=== PATIENT | female | born 1980 | race Caucasian/White ===

== ENCOUNTER 2021-11-10 13:52 | Emergency (ER) | payer OTHER, SELFPAY ==
--- NOTE | 2021-11-10 14:02 | ED.EXTPRO ---
HPI - Extremity Problem General Chief complaint: Extremity Injury, Lower Stated complaint: ella leg/foot/ankle painful and swelling Time Seen by Provider: 11/10/21 14:02 Source: patient and RN notes reviewed Mode of arrival: ambulatory Limitations: no limitations History of Present Illness HPI Narrative: 41-year-old female presents to the [facility] with complaints of lower leg swelling for the last 5 days. Patient states she has had intermittent swelling for the last month, has not seen her primary care provider. Patient reports numbness and tingling in her extremities. Positive pedal pulses noted. +2-3 edema pitting noted. No redness noted from mid calf to foot toe. Old scar noted to the right medial aspect of ankle patient reports that she had an abscess there. Reports this morning that she had some chest pain and shortness of breath, none currently. Patient states that she has been trying to keep her feet up but the swelling keeps getting worse. Reports she has a history of congestive heart failure, currently does not take any medications MD Complaint: extremity swelling (bilateral) Related Data Home Medications Medication Instructions Recorded Confirmed No Home Medications 11/10/21 11/10/21 Allergies Allergy/AdvReac Type Severity Reaction Status Date / Time No Known Allergies Allergy Verified 07/29/15 11:11 Review of Systems Review of Systems: All systems reviewed & are unremarkable except as noted in HPI and below Constitutional: Constitutional: Reports no additional constitutional complaints, Denies chills and Denies fever(s) Eyes: Eyes: Reports no additional eye complaints ENT: Reports system reviewed and no additional complaints, except as documented Cardiovascular: Cardiovascular: Reports no additional cardiovascular complaints, Reports pedal edema (Bilateral) and Reports leg edema (Bilateral knees down) Respiratory: Respiratory: Reports no additional respiratory complaints Gastrointestinal: Gastrointestinal: Reports no additional gastrointestinal complaints Genitourinary: Genitourinary: Reports no additional female genitourinary complaints Musculoskeletal: Musculoskeletal: Reports no additional musculoskeletal complaints Integumentary/Breasts: Skin/Breast: Reports system reviewed and no additional complaints, except as docu Neurologic: Reports system reviewed and no additional complaints, except as documented Psychiatric: Psychiatric: Reports no additional psychiatric complaints Allergic/Immunologic: Allergic/Immunologic: Reports no additional allergic/immunologic complaints PMFSH Past Medical History Medical History (Updated 11/10/21 @ 14:28 by Itzel Thomason APRN) CHF (congestive heart failure) Social History Social History (Updated 11/10/21 @ 14:24 by Itzel Thomason APRN) Gender identity (if verbalized by the patient): Female Comments At the time of my signature, I reviewed and agree with the nursing past medical, surgical, social, and family history. There is no relevant family history pertinent to the patient complaint. Exam Const: General: healthy appearing, no acute distress, alert and uncomfortable Nutritional Appearance: well nourished and obese centrally obese Orientation/consciousness: patient oriented x3 Limitations: no limitations HENMT: Head: normal to inspection Ears: external ears normal Eyes: Pupils: Equal, round and reactive pupils present Neck: Neck: normal visual inspection, no lymphadenopathy and no meningeal signs Chest: Chest palpation & inspection: normal inspection of the chest Resp: Effort & Inspection: normal respiratory effort and no use of accessory muscles Auscultation: clear to auscultation bilaterally, no crackles, no rales, no rhonchi and no wheezes Cardio: Rate: regular rate Rhythm: regular rhythm Skin: General skin exam: normal color Rashes: no rashes Wounds: no wounds Neuro: General: patient oriented x3, moves all extremities,
[2021-11-10 14:04] VITALS: BP 126/46; PULSE 89; RESP 16; TEMP 36.4; O2SAT 99
[2021-11-10 14:10] VITALS: BP 126/46; PULSE 89; RESP 16; TEMP 36.4; O2SAT 99
== END 2021-11-10 14:18 | disposition short-term general hospital (02) ==
LOC: EXPCOLL 13:59
PROVIDERS: Emergency Provider Nurse Practitioner; PCP Family Medicine
DX: R60.0 Localized edema (principal); I50.9 Heart failure, unspecified
CPT/HCPCS: 99212; G0463

== ENCOUNTER 2021-11-10 15:54 | Emergency (ER) | payer OTHER, SELFPAY ==
[2021-11-10] VITALS (9 sets, daily range): BP systolic 105–118; BP diastolic 63–88; PULSE 66–86; RESP 11–25; TEMP 36.7; O2SAT 98–100
--- NOTE | ~2021-11-10 | XR_ITS ---
EXAMINATION: XR chest 2V Exam Date/Time: 11/10/2021 16:15 CDT HISTORY: chf Comparison: 05/23/2005. RESULT: Lines, tubes, and devices: None. Lungs and pleura: Low lung volumes with crowding, otherwise clear. Cardiomediastinal silhouette: Stable cardiomediastinal silhouette. Other: No acute osseous or upper abdominal finding. IMPRESSION: No acute cardiopulmonary process. Reviewed, dictated and finalized at location K.
--- NOTE | 2021-11-10 16:10 | ECG_ITS ---
Measurements Intervals [place] Rate: 75 P: 51 ID: [id number] QRS: -10 QRSD: 86 T: 31 QT: 365 QTc: 409 Interpretive Statements SINUS RHYTHM INCOMPLETE RIGHT BUNDLE BRANCH BLOCK LOW QRS VOLTAGE IN PRECORDIAL LEADS BASELINE ARTIFACT- I, II, AVR, V1, V4-V6 BORDERLINE ECG Electronically Signed On 11-11-2021 7:48:23 CDT by John Amezquita D.O.
[2021-11-10 16:45] LABS: Basophils Percent Auto 0.5 % (0.2-1.2); Eosinophils Absolute Auto 0.2 K/mm3 (0-0.3); Eosinophils Percent Auto 3.8 % (0-4.4); Hematocrit 35.1 % (37.0-47.0); Immature Granulocyte Absolute 0.02 K/mm3 (0.00-0.031); Immature Granulocyte Percent A 0.3 % (0-0.5); Immature Platelet Fraction Pct 2.6 % (0.9-11.2); Lymphocytes Absolute Auto 1.93 K/mm3 (0.9-3.2); Lymphocytes Percent Auto 32.9 % (18.3-44.2); Mean Corpuscular HGB Conc 31.3 g/dl (32-36); Mean Corpuscular Hemoglobin 27.6 pg (26-34); Mean Corpuscular Volume 88.2 fl (80-100); Mean Platelet Volume 10.2 fl (7.4-10.4); Monocytes Absolute Auto 0.4 K/mm3 (0.1-0.6); Monocytes Percent Auto 6.8 % (2.6-8.5); Neutrophils Absolute Auto 3.3 K/mm3 (1.3-6.7); Neutrophils Percent Auto 55.7 % (45.5-73.1); Platelet Count Result 236 k/mm3 (150-375); Red Blood Count 3.98 M/mm3 (4.2-5.4); Red Cell Distribution Width 13.7 % (11.5-14.5); White Blood Count 5.9 K/mm3 (4.5-10.0)
[2021-11-10 17:00] LABS: Platelet Estimate Adequate (Adequate)
--- NOTE | 2021-11-10 17:03 | ED.GENADULT ---
HPI - General Adult General Chief complaint: Chest Pain Stated complaint: Bilateral Leg Swelling Time Seen by Provider: 11/10/21 15:58 Source: patient and RN notes reviewed Mode of arrival: ambulatory Limitations: no limitations History of Present Illness HPI narrative: This is a 41 year old female with history of cardiomyopathy years ago who presents for evaluation of bilateral feet swelling. She reports chronic feet swelling but states it normally resolves with elevation. She states her feet have been consistently swollen for 5 days. She also reports pins and needles feeling in her feet. She denies cough, fever, shortness of breath, nausea, or vomiting. She reports today she developed midsternal chest pain. She reports pain came on suddenly and resolved after minutes . It occurs intermittently but she denies chest pain now. she states her pain does not radiate. She denies dizziness, diaphoresis with this pain. Related Data Allergies Allergy/AdvReac Type Severity Reaction Status Date / Time No Known Allergies Allergy Verified 11/10/21 16:02 Review of Systems Review of Systems: All systems reviewed & are unremarkable except as noted in HPI and below Constitutional: Constitutional: Denies chills, Denies fever(s) and Denies weakness ENT: Denies nasal congestion Cardiovascular: Cardiovascular: Denies chest pain, Denies rapid heart rate, Reports leg edema, Denies radiating jaw, neck or arm pain, Denies dyspnea and Denies orthopnea Respiratory: Respiratory: Denies cough, Denies dyspnea, Denies dyspnea on exertion and Denies wheezing Gastrointestinal: Gastrointestinal: Denies abdominal pain, Denies diarrhea, Denies nausea and Denies vomiting Musculoskeletal: Musculoskeletal: Denies back pain Neurologic: Denies headache(s) and Denies weakness [facility] Past Medical History Medical History (Updated 11/10/21 @ 18:52 by Vernell Ellsworth MD) CHF (congestive heart failure) Surgical History Surgical History (Updated 11/10/21 @ 17:15 by Vernell Ellsworth MD) History of cholecystectomy Social History Social History (Updated 11/10/21 @ 14:24 by Itzel Thomason APRN) Gender identity (if verbalized by the patient): Female Exam Const: General: no acute distress and alert Nutritional Appearance: obese Orientation/consciousness: patient oriented x3 Eyes: EOM: EOMs intact bilaterally Resp: Effort & Inspection: normal respiratory effort and no retractions Auscultation: clear to auscultation bilaterally Cardio: Rate: regular rate Rhythm: regular rhythm Heart sounds: no murmurs GI: GI Palp: Yes Soft to palpation, No Tenderness to palpation present (GI) and No Guarding due to palpation present (GI) Auscultation: normal bowel sounds Skin: General skin exam: normal color Rashes: no rashes Neuro: General: patient oriented x3, moves all extremities and CN's II-XI intact bilaterally Extrem: General: edema bilateral (nonpitting) Psych: Mental Status: mental status grossly normal Affect: normal affect Course Reevaluation(s) Reevaluation #1: Patient is PERC negative. labs are unremarkable. She will be placed on diuretic and follow up with PCP. No signs of CHF. unlikely DVT. I have discussed with patient discharge plan and she has no additional questions. Date: 11/10/21 Time: 18:48 Vital Signs Vital signs: Vital Signs Temperature 98.0 F 11/10/21 15:59 Pulse Rate 82 11/10/21 15:59 Respiratory Rate 19 11/10/21 15:59 Blood Pressure 105/88 11/10/21 15:59 Pulse Oximetry 100 11/10/21 15:59 Temperature 98.0 F 11/10/21 15:59 Pulse Rate 86 11/10/21 19:16 Respiratory Rate 16 11/10/21 19:16 Blood Pressure 118/64 11/10/21 19:16 Pulse Oximetry 98 11/10/21 19:16 Medical Decision Making Vital Signs Vital Signs: Vital Signs Temperature 98.0 F 11/10/21 15:59 Pulse Rate 82 11/10/21 15:59 Respiratory Rate 19 11/10/21 15:59 Blood Pressure 105/88
[2021-11-10 17:42] LABS: Partial Thromboplastin Time 29.8 SECONDS (22.3-36.8)
[2021-11-10 17:47] LABS: Alanine Aminotransferase 56 U/L (6-35); Albumin Level 3.8 g/dL (3.5-5.1); Alkaline Phosphatase 118 U/L (38-126); Anion Gap 5 mmol/L (8-16); Aspartate Amino Transferase 65 U/L (14-36); Bilirubin,Total 0.2 mg/dL (0.2-1.3); Blood Urea Nitrogen 15 mg/dL (7-17); Calcium 8.6 mg/dL (8.4-10.2); Carbon Dioxide 26 mmol/L (22-30); Chloride 103 mmol/L (98-107); Estimated CRCL calculation 122 ml/min; Estimated Glomerular Filt Rate > 60; Glucose 97 mg/dL (65-110); Potassium 3.9 mmol/L (3.4-5.0); Sodium 134 mmol/L (137-145)
[2021-11-10 17:58] LABS: NT Pro B Type Natriuretic Pept 22 pg/mL (5-100)
[2021-11-10 18:01] LABS: Troponin I < 0.012 ng/mL (0.000-0.034)
[2021-11-10] MEDS: FUROSEMIDE TABLET 20 MG, FUROSEMIDE TABLET 40 MG 60 MG PO (18:21)
== END 2021-11-10 19:16 | disposition home or self-care (01) ==
PROVIDERS: Emergency Provider General Practice; PCP Family Medicine
DX: R60.0 Localized edema (principal); R07.89 Other chest pain; I45.10 Unspecified right bundle-branch block
CPT/HCPCS: 36415; 71046; 80053; 83880; 84484; 85025; 85055; 85610; 85730; 93005; 99284; A9270

== ENCOUNTER 2022-08-02 15:45 | Emergency (ER) | payer OTHER, SELFPAY ==
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
[2022-08-02 15:57] VITALS: BP 143/67; PULSE 99; RESP 12; TEMP 36.7; O2SAT 98
== END 2022-08-02 17:13 | disposition home or self-care (01) ==
PROVIDERS: Emergency Provider Nurse Practitioner; PCP Family Medicine
DX: S13.4XXA Sprain of ligaments of cervical spine, initial encounter (principal); M25.512 Pain in left shoulder; I50.9 Heart failure, unspecified; V49.9XXA Car occupant (driver) (passenger) injured in unspecified traffic accident, initial encounter
CPT/HCPCS: 73030; 99213; A4565; G0463

== ENCOUNTER 2022-12-19 19:44 | Emergency (ER) | payer OTHER, SELFPAY ==
[2022-12-19 19:53] VITALS: BP 155/95; PULSE 105; RESP 16; TEMP 36.3; O2SAT 98
--- NOTE | 2022-12-19 20:05 | ED.SKABFB ---
HPI - Skin/Abscess/Foreign Bdy General Chief complaint: Extremity Problem,Nontraumatic Stated complaint: problem with feet Time Seen by Provider: 12/19/22 19:54 Source: patient and RN notes reviewed Mode of arrival: ambulatory Limitations: no limitations History of Present Illness HPI narrative: Patient presents today complaining of a 3 week history to a rash to the bottom of her feet that itches. Denies pain. She was seen 2 weeks ago at a different Urgent Care who gave her prescription for athlete's foot cream that she used twice a day for 2 weeks without relief of symptoms. Related Data Home Medications Medication Instructions Recorded Confirmed ketoconazole 2 % topical cream 1 applic topical BID 12/19/22 12/19/22 Allergies Allergy/AdvReac Type Severity Reaction Status Date / Time No Known Allergies Allergy Verified 12/19/22 19:55 Review of Systems Review of Systems: CONSTITUTIONAL: Denies body aches, fever, chills, or sweats. EYES: Denies visual changes, redness, or discharge. ENT: Denies rhinorrhea, congestion, sore throat, or otalgia. CARDIOVASCULAR: Denies chest pain, palpitations, or edema. RESPIRATORY: Denies cough or dyspnea. GASTROINTESTINAL: Denies abdominal pain, nausea, vomiting, or diarrhea. GENITOURINARY: Denies dysuria or hematuria. SKIN: + foot rash MUSCULOSKELETAL: Denies back pain, joint pain, or myalgia. NEUROLOGIC: Denies headache, numbness, tingling, or weakness. PSYCH: Denies depression or anxiety. PMFSH Past Medical History Medical History CHF (congestive heart failure) Surgical History Surgical History History of cholecystectomy Social History Social History Gender identity (if verbalized by the patient): Female Comments At time of signature, I have reviewed and agree with nursing past medical, surgical, social and family history unless otherwise noted. Please see nursing chart for further information. There is no relevant family history pertinent to the presenting complaint Exam Narrative: GENERAL: Well-appearing, well-nourished, and in no acute distress. HEAD: Normocephalic, atraumatic. EYES: EOMI. No redness or drainage. Conjunctivae normal. ENT: Mucous membranes pink and moist. NECK: Normal AROM. CHEST: No respiratory distress. EXTREMITIES: Patient has what appears to be a thin layer of overgrowth of keratin on the balls of both of her feet and in between her toes. This area is dry and flakes between the toes. No erythema present. No drainage noted. Tender to palpation. Distal sensation intact. Capillary refill normal. Pedal pulse normal. SKIN: Warm, dry, no rash. Capillary refill normal. Normal skin turgor. NEURO: No focal deficits. Alert and oriented x3. Gait steady. PSYCH: Normal affect. No signs of depression or anxiety. Course Course Level of Care: Express Care Visit Vital Signs Vital signs: Vital Signs Temperature 97.3 F L 12/19/22 19:53 Pulse Rate 105 H 12/19/22 19:53 Respiratory Rate 16 12/19/22 19:53 Blood Pressure 155/95 H 12/19/22 19:53 Pulse Oximetry 98 12/19/22 19:53 Oxygen Delivery Room Air 12/19/22 19:53 Temperature 97.3 F L 12/19/22 19:53 Pulse Rate 105 H 12/19/22 19:53 Respiratory Rate 16 12/19/22 19:53 Blood Pressure 155/95 H 12/19/22 19:53 Pulse Oximetry 98 12/19/22 19:53 Oxygen Delivery Room Air 12/19/22 19:56 Reviewed MDM - Skin/Abscess/Foreign Bdy MDM Narrative Medical decision making narrative: Advised patient to follow up with podiatry for further evaluation. No prescription medications indicated at this time. Anticipatory guidance given. Differential Diagnosis Differential diagnosis: Likely dermatophytosis, cellulitis, eczema, impetigo, contact dermatitis and other (keratin) Critic
== END 2022-12-19 20:10 | disposition home or self-care (01) ==
PROVIDERS: Emergency Provider Nurse Practitioner
DX: R21 Rash and other nonspecific skin eruption (principal); I50.9 Heart failure, unspecified
CPT/HCPCS: 99211; G0463

== ENCOUNTER 2024-01-22 16:57 | Emergency (ER) | payer OTHER, SELFPAY ==
[2024-01-22 17:13] VITALS: BP 113/66; PULSE 94; RESP 15; TEMP 36.2; O2SAT 97
--- NOTE | 2024-01-22 17:18 | ED.SKABFB ---
HPI - Skin/Abscess/Foreign Bdy General Chief complaint: Skin/Abscess/Foreign Body Stated complaint: hands/feet dry & itching Source: patient, RN notes reviewed and old records reviewed Mode of arrival: ambulatory Limitations: no limitations History of Present Illness HPI narrative: Patient presents with complaints of skin changes to bilateral soles of feet. She reports ?holes? in her skin on the soles of her feet. She denies any injury or trauma. She reports that she has been using [id number] athlete's foot medicine for about 1 week with no results. She denies any injury or trauma. She does complain to itching of the feet. She also complains of skin changes to the hands, no itching. She voices no other concerns or complaints at this time Related Data Allergies Allergy/AdvReac Type Severity Reaction Status Date / Time No Known Allergies Allergy Verified 01/22/24 17:21 Review of Systems Review of Systems: All systems reviewed & are unremarkable except as noted in HPI and below Constitutional: Constitutional: Reports no additional constitutional complaints ENT: Reports system reviewed and no additional complaints, except as documented Cardiovascular: Cardiovascular: Reports no additional cardiovascular complaints Respiratory: Respiratory: Reports no additional respiratory complaints Gastrointestinal: Gastrointestinal: Reports no additional gastrointestinal complaints Integumentary/Breasts: Skin/Breast: Reports system reviewed and no additional complaints, except as docu and Reports as per HPI [facility] Past Medical History Medical History CHF (congestive heart failure) Surgical History Surgical History History of cholecystectomy Social History Social History Gender identity (if verbalized by the patient): Female Comments At the time of my signature, I reviewed and agree with the nursing past medical, surgical, social, and family history. There is no relevant family history pertinent to the patient complaint. Exam Const: General: cooperative, no acute distress, alert and awake Orientation/consciousness: oriented to person, oriented to place and oriented to time HENMT: Head: normal to inspection Resp: Effort & Inspection: normal respiratory effort and able to speak in complete sentences Auscultation: clear to auscultation bilaterally, no crackles, no rales, no rhonchi and no wheezes Cardio: Palpation: normal PMI Rate: regular rate Rhythm: regular rhythm Heart sounds: S1 normal heart sound present and S2 normal heart sound present Skin: Other: Soles of feet with flaking skin, consistent with athlete's foot. Hands appear dry. No open sores to either side Neuro: General: oriented to person, oriented to place and oriented to time Cranial nerves: Yes CN's II-XII intact bilaterally Psych: Appearance: grossly normal Thought process: Normal thought process present Insight: Good insight present (Psych) Judgement: Good judgement present (Psych) Course Course Level of Care: Express Care Visit Vital Signs Vital signs: Vital Signs Temperature 97.2 F L 01/22/24 17:13 Pulse Rate 94 01/22/24 17:13 Respiratory Rate 15 01/22/24 17:13 Blood Pressure 113/66 01/22/24 17:13 Pulse Oximetry 97 01/22/24 17:13 Oxygen Delivery Room Air 01/22/24 17:13 Temperature 97.2 F L 01/22/24 17:13 Pulse Rate 94 01/22/24 17:13 Respiratory Rate 15 01/22/24 17:13 Blood Pressure 113/66 01/22/24 17:13 Pulse Oximetry 97 01/22/24 17:13 Oxygen Delivery Room Air 01/22/24 17:13 Reviewed MDM - Skin/Abscess/Foreign Bdy MDM Narrative Medical decision making narrative: Exam consistent with dry skin on hands, athlete's foot of bilateral feet. Prescription for nystatin provided to the patient. Follow-up with primary ca
== END 2024-01-22 17:52 | disposition home or self-care (01) ==
PROVIDERS: Emergency Provider Nurse Practitioner Family; PCP Family Medicine
DX: B35.3 Tinea pedis (principal); I50.9 Heart failure, unspecified
CPT/HCPCS: 99213; G0463

== ENCOUNTER 2024-03-07 18:19 | Emergency (ER) | payer OTHER, SELFPAY ==
[2024-03-07 18:24] VITALS: BP 109/61; PULSE 84; RESP 20; TEMP 36.6; O2SAT 100
--- NOTE | 2024-03-07 18:49 | ED.URI ---
HPI - URI/Sore Throat General Chief Complaint: Upper Respiratory Infection Stated Complaint: Sinus Time Seen by Provider: 03/07/24 18:50 Source: patient, RN notes reviewed and old records reviewed Mode of arrival: ambulatory Limitations: no limitations History of Present Illness HPI Narrative: Patient presents with complaints of runny nose, headache, body aches, chills. She reports symptoms have been present for less than 24 hours. She has not been taking anything for her symptoms. She reports sick contacts and is requesting COVID and flu testing today. Related Data Home Medications Medication Instructions Recorded Confirmed No Home Medications 03/07/24 03/07/24 Allergies Allergy/AdvReac Type Severity Reaction Status Date / Time No Known Allergies Allergy Verified 03/07/24 18:32 Review of Systems Review of Systems: All systems reviewed & are unremarkable except as noted in HPI and below Constitutional: Constitutional: Reports as per HPI, Reports no additional constitutional complaints, Reports body ache(s), Reports chills and Reports headache(s) ENT: Reports system reviewed and no additional complaints, except as documented, Reports as per HPI, Reports nasal discharge and Reports sinus pressure Cardiovascular: Cardiovascular: Reports as per HPI and Reports no additional cardiovascular complaints Respiratory: Respiratory: Reports no additional respiratory complaints Gastrointestinal: Gastrointestinal: Reports no additional gastrointestinal complaints PMF Past Medical History Medical History CHF (congestive heart failure) Surgical History Surgical History History of cholecystectomy Social History Social History Gender identity (if verbalized by the patient): Female Exam Const: General: cooperative, no acute distress, alert and awake Orientation/consciousness: oriented to person, oriented to place and oriented to time HENMT: Head: normal to inspection Resp: Effort & Inspection: normal respiratory effort and able to speak in complete sentences Auscultation: clear to auscultation bilaterally, no crackles, no rales, no rhonchi and no wheezes Cardio: Palpation: normal PMI Rate: regular rate Rhythm: regular rhythm Heart sounds: S1 normal heart sound present and S2 normal heart sound present Neuro: General: oriented to person, oriented to place and oriented to time Cranial nerves: Yes CN's II-XII intact bilaterally Psych: Appearance: grossly normal Thought process: Normal thought process present Insight: Good insight present (Psych) Judgement: Good judgement present (Psych) Course Course Level of Care: Express Care Visit Vital Signs Vital signs: Vital Signs Temperature 97.8 F 03/07/24 18:24 Pulse Rate 84 03/07/24 18:24 Respiratory Rate 20 03/07/24 18:24 Blood Pressure 109/61 03/07/24 18:24 Pulse Oximetry 100 03/07/24 18:24 Oxygen Delivery Room Air 03/07/24 18:24 Temperature 97.8 F 03/07/24 18:24 Pulse Rate 84 03/07/24 18:24 Respiratory Rate 20 03/07/24 18:24 Blood Pressure 109/61 03/07/24 18:24 Pulse Oximetry 100 03/07/24 18:24 Oxygen Delivery Room Air 03/07/24 18:24 MDM - URI/Sore Throat MDM Narrative Medical decision making narrative: Reassuring physical exam. Negative COVID, negative flu, negative strep. Reassuring physical exam. Symptoms for less than 24 hours, there is a chance that even if there is an infectious etiology was not picked up on testing. Patient informed of same. Treat symptomatically, follow with primary care provider. Discharge instructions reviewed with patient, as well as provided in writing per nursing staff. The instructions also include specific and strict return/GO TO THE ER as well as f/u information. All questions have been answe
[2024-03-07 19:03] LABS: EDCOVIDSCREEN Negative (Negative); EDINFLUASCREEN Negative (Negative); EDINFLUBSCREEN Negative (Negative); EDSTREPNEGPOS1 Negative (Negative)
== END 2024-03-07 19:06 | disposition home or self-care (01) ==
PROVIDERS: Emergency Provider Nurse Practitioner Family; PCP Family Medicine
DX: J06.9 Acute upper respiratory infection, unspecified (principal); Z20.822 Contact with and (suspected) exposure to COVID-19; I50.9 Heart failure, unspecified
CPT/HCPCS: 87081; 87635; 87804; 87880; 99213; G0463